=== PATIENT | male | born 1985 | race Caucasian/White ===

== ENCOUNTER 2022-01-30 01:55 | Outpatient (CLI) | payer OTHER, SELFPAY ==
[2022-01-30 10:43] LABS: TSH (W/Ref FT4) 5.22 uIU/mL (0.36-3.74)
[2022-01-30 11:00] LABS: FREE T4 0.93 ng/dL (0.76-1.46)
== END 2022-01-30 01:56 | disposition home or self-care (01) ==
PROVIDERS: PCP Internal Medicine; Visit Provider Family Medicine
DX: E03.9 Hypothyroidism, unspecified (principal)
CPT/HCPCS: 36415; 84439; 84443